=== PATIENT | male | born 1985 | race Two or more races ===

== ENCOUNTER 2023-01-09 09:18 | Emergency (ER) | payer OTHER ==
[~2023-01-09] VITALS: Ht 185.4 cm; Wt 117.9 kg
[~2023-01-09 09:18] MED LIST: DOLOGESIC CAPSU1 CAP PO
== END 2023-01-09 17:22 | disposition home or self-care (01) ==
LOC: ER 09:18
DX: N50.811 Right testicular pain (principal); N45.2 Orchitis; Z20.822 Contact with and (suspected) exposure to COVID-19

== ENCOUNTER → 2023-09-21 | Emergency (ER) | payer OTHER ==
[~2023-09-21] VITALS: Ht 188 cm; Wt 74.8 kg
== END | disposition home or self-care (01) ==
LOC: ER 11:26
DX: K04.7 Periapical abscess without sinus (principal); I10 Essential (primary) hypertension

== ENCOUNTER → 2024-09-20 | Emergency (ER) | payer OTHER ==
[~2024-09-20] VITALS: Ht 185.4 cm; Wt 120.2 kg
[~2024-09-20] MED LIST changes: +AVALIDE 300-121 EACH PO; +TOPROL XL25 M1 PO
== END | disposition home or self-care (01) ==
LOC: ER 16:33
DX: B02.8 Zoster with other complications (principal)